=== PATIENT | male | born 1995 | race Caucasian/White ===

== ENCOUNTER → 2016-06-15 | Outpatient (CLI) | payer BC ==
[~2016-06-15] MED LIST: NO HOME MEDICATIONS; PROVENTIL0.09 MG/A1 IH; SINGULAIR5 MG PO; ULTRAM 50MG TAB50 MG PO
== END ==
LOC: COL.PUL 07:53
DX: R05 Cough (principal); R94.2 Abnormal results of pulmonary function studies
CPT/HCPCS: J7674

== ENCOUNTER → 2020-10-24 | Outpatient (CLI) | payer BC | LOC: COL.RAD 11:59 | DX: M25.571 Pain in right ankle and joints of right foot (principal); M25.572 Pain in left ankle and joints of left foot; G89.29 Other chronic pain ==